=== PATIENT | female | born 1970 | race Caucasian/White ===

== ENCOUNTER → 2024-09-17 | Outpatient (CLI) | payer MEDICAID, SELFPAY ==
[2024-09-17 11:40] LABS: Erythrocyte Sedimentation Rate 32 mm/hr (0-30)
[2024-09-17 11:43] LABS: Absolute Lymphocyte Count 3.64 X10^3/uL (0.83-4.51); Absolute Neutrophil Count 6.8 X10^3/uL (2.0-7.7); Basophil# 0.08 X10^3/uL; Basophil% 0.7 % (0-1); Eosinophils% 2.6 % (0-5); Hemoglobin 14.2 g/dL (12.0-15.0); Lymphocyte # 3.64 X10^3/ul (0.83-4.51); Mean Corp Hgb Conc 32.3 g/dL (32-36); Mean Corpuscular Hgb 27.2 pg (27.0-32.0); Mean Corpuscular Volume 84.3 fL (81-99); Mean Platelet Vol. 9.9 fl (6.2-12.0); Monocyte# 0.45 X10^3/uL; NRBC Flagged by Analyzer 0 % (0-5); Neutrophil # 6.83 X10^3/uL (2.7-7.7); Neutrophil % 60.2 % (47-70); Platelet Count 366 K/mm3 (150-450); RBC Distribution Width CV 14.2 % (11.6-14.6); RBC Distribution Width SD 43.5 fl (35.1-43.9); Red Blood Count 5.22 M/mm3 (4.2-5.4); White Blood Count 11.4 K/mm3 (4.4-11.0)
[2024-09-17 12:29] LABS: Hemoglobin A1c 6.6 % (<=5.6)
[2024-09-17 12:32] LABS: ALB/GLOB Ratio 1.2 RATIO (0.9-2.4); AST(SGOT) 19 U/L (<=31); Alanine Aminotransfer ALT/SGPT 14 U/L (<=34); Albumin, Serum 4.2 g/dL (3.5-5.0); Alkaline Phosphatase 124 U/L (35-104); Anion Gap 11 (5-15); BUN 11 mg/dL (4-19); BUN/Creat Ratio 15.4 RATIO (10-20); CRP < 3.00 mg/L (0.0-3.0); Carbon Dioxide 26.4 mmol/L (21.0-32.0); Chloride 101 mmol/L (98-108); Creatinine, Serum 0.73 mg/dL (0.70-1.20); EST Glomerular Filtration Rate 99 (>60); Globulin 3.6 g/dL (2.2-4.2); Glucose 134 mg/dL (70-99); Potassium 4.4 mmol/L (3.3-5.1); Protein, Total 7.8 g/dL (5.9-8.4); Sodium Level 138 mmol/L (133-145); Total Bilirubin 0.22 mg/dL (0.00-1.30)
[2024-09-17 12:34] LABS: Ammonia 12.2 umol/L (11-51)
[2024-09-18 17:08] LABS: Anti-Centromere B Ab <0.2 AI (0.0-0.9); Anti-Chromatin <0.2 AI (0.0-0.9); Anti-Jo <0.2 AI (0.0-0.9); Anti-Mitochondrial AB <20.0 Units (0.0-20.0); Anti-Scleroderma-70 AB <0.2 AI (0.0-0.9); Anti-dsDNA Ab 3 IU/mL (0-9); RNP Ab 0.4 AI (0.0-0.9); SJOGREN'S Anti-SS-A test < 0.2 AI (0.0-0.9); SJOGREN'S Anti-SS-B test < 0.2 AI (0.0-0.9); Smith Ab <0.2 AI (0.0-0.9)
[2024-09-21 22:06] LABS: AFP, Tumor Marker < 1.8 ng/mL (0.0-9.2); Angiotensin Convert Enzyme 35 U/L (14-82); Anti-Smooth Muscle ABS 7 Units (0-19); Ceruloplasmin 32.7 mg/dL (19.0-39.0); Copper, Serum or Plasma 127 ug/dL (80-158); Cytoplasmic Ab (C-ANCA) <1:20 titer (Neg:<1:20); HEPATITIS B SURFACE AG Negative (Negative); Hep C Antibodies Non Reactive (Non Reactive); Hepatitis A IgM Antibody Negative (Negative); Hepatitis B Core AB IgM Negative (Negative); Perinuclear Ab (P-ANCA) <1:20 titer (Neg:<1:20)
== END | disposition home or self-care (01) ==
LOC: LAB 10:44
PROVIDERS: PCP Nurse Practitioner Family; Referring Provider Student in an Organized Health Care Education/Training Program; Visit Provider Student in an Organized Health Care Education/Training Program
DX: K76.6 Portal hypertension (principal); K31.89 Other diseases of stomach and duodenum; R11.2 Nausea with vomiting, unspecified
CPT/HCPCS: 36415; 80053; 80074; 82105; 82140; 82164; 82390; 82525; 83036; 83516; 85025; 85610; 85652; 86037; 86140; 86225; 86235

== ENCOUNTER 2024-11-19 09:08 | Day surgery (SDC) | payer MEDICAID, SELFPAY ==
--- NOTE | 2024-11-17 15:47 | PAT.ANESEVAL ---
Pre-Assessment Diagnosis/Proposed Procedure Planned Operative Procedure(s): EGD Anesthesia History Anesthesia History - hospice social worker: Anesthesia History - hospice social worker Hx Hospitalization Yes: FOR DIABETES 02/202411/17/24 09:36 Any Problems With Anesthesia No 11/17/24 09:36 Cholinesterase deficiency No 11/17/24 09:36 You/Your Family Experience No 11/17/24 09:36 fever (hyperthermia) with Relationship Recent Exposure to Contagious Disease Does patient have nerve No 11/17/24 09:36 stimulator Patient instructed to have device shut off --Does patient have Pacemaker or ICD? When Was Last Pacemaker Check QUESTION #4 FULL TEXT: You/Your Family Experience fever (hyperthermia) with Anesthesia Last Oral Intake Last Oral intake: Last Oral Intake NPO since Meds taken in AM with sips of water? Meds patient instructed to take am of surgery PONV PONV - hospice social worker: PONV - hospice social worker Female Yes 11/17/24 09:36 HX of Motion Sickness Yes 11/17/24 09:36 HX of N/V After Surgery No 11/17/24 09:36 Non-Smoker No 11/17/24 09:36 Duration of Surgery greater No 11/17/24 09:36 than 60 minutes Number of Risk Factors 2 11/17/24 09:36 PONV Score Moderate Risk 11/17/24 09:36 Height & Weight Height & Weight: Anesthesia: Height & Weight Height 5 ft 11/17/24 11:20 Respiratory Assessment Respiratory Assessment - hospice social worker: Respiratory Tract Infection Hx - hospice social worker Hx Respiratory Tract Infection No 11/17/24 09:36 STOP Sleep Apnea STOP Sleep Apnea - hospice social worker: STOP Sleep Apnea - hospice social worker Hx Hypertension No 11/17/24 09:36 Hx Sleep Apnea No 11/17/24 09:36 CPAP BIPAP Do you snore loudly (louder No 11/17/24 09:36 than talking or can be heard Do you often feel tired/ No 11/17/24 09:36 fatigued/ sleepy during daytime? Has anyone observed you stop No 11/17/24 09:36 breathing during sleep? STOP Results Negative 11/17/24 09:36 QUESTION #5 FULL TEXT : Do you snore loudly (louder than talking or can be heard through closed doors)? 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 Specify any problems Hx of Preganancy in last 3 No 11/17/24 09:36 Months Nurse Filling Out Transfusion VLEHMAN 11/17/24 09:36 & Questions: Date: 11/17/24 11/17/24 09:36 Time: 14:19 11/17/24 09:36 Patient unable to answer at this time (ie. confused, unrespo /Reproduction History /Reproductive History - hospice social worker: /Reproductive Hx- hospice social worker Hx Now No 11/17/24 09:36 Gestational Age (in weeks): EDC: Hx Hx Para Hx Section SAB No 11/17/24 09:36 [facility] Medical History Wears glasses Cancer History of Clostridium difficile infection Insulin dependent diabetes mellitus Anemia History of diverticulitis Gastric reflux Smoker Shortness of breath on exertion Leg cramps GERD (gastroesophageal reflux disease) Diabetes Hyperlipidemia CAD (coronary artery disease) COPD (chronic obstructive pulmonary disease) Abnormal colonoscopy Perianal mass Primary cancer of perianal skin Home Medications ?Medication ?Instructions ?Recorded ?Last Taken ?Type albuterol sulfate 90 mcg/actuation 2 puff inhalation Q6H PRN 09/17/24 Unknown History aerosol inhaler shortness of breath or wheezing benzonatate 200 mg capsule 200 mg PO BID PRN cough 09/17/24 Unknown History omeprazole 40 mg capsule,delayed 40 mg PO QDAY 09/17/24 Unknown History release hydroxyzine HCl 25 mg tablet 25 mg PO TID PRN itching 09/19/24 Unknown History insulin glargine 100 unit/mL (3 20 unit subcut QAM 09/19/24 Unknown History mL) subcutaneous pen (Lantus Solostar U-100 Insulin) montelukast 10 mg tablet 10 mg PO QDAY 09/19/24 Unknown History atorvastatin 40 mg tablet 20 mg PO QDAY 09/30/24 Unknown History cyclobenzaprine 10 mg tablet 10 mg PO TID PRN muscle spasm 09/30/24 Unknown History famotidine 20 mg tablet 20 mg PO BID 09/30/24 Unknown History guaifenesin 600 mg tablet, 600 mg PO BID 09/30/24 Unknown History extended release 12 hr ipratropium 0.5 mg-albuterol 3 mg 3 ml inhalation .qid PRN shortness 09/30/24 Unknown History (2.5 mg base)/3 mL nebulization of breath soln lidocaine 5 % topical ointment 1 applic topical QDAY PRN pain 09/30/24 Unknown History ondansetron HCl 4 mg tablet 4 mg PO Q8H PRN nausea and vomiting 09/30/24 Unknown History sucralfate 1 gram tablet 1 g PO .qid 09/30/24 Unknown History trazodone 50 mg tablet 50 mg PO QHS 09/30/24 Unknown History Allergy/AdvReac Type Severity Reaction Status Date / Time empagliflozin (From Allergy Unknown unknown Verified 11/17/24 11:21 Jardiance) morphine Allergy Unknown unknown Verified 11/17/24 11:21 Surgical History H/O colonoscopy Hx of esophagogastroduodenoscopy Hx of hysterectomy Hx of cholecystectomy Hx of appendectomy Social History Smoking Status: Current every day smoker tobacco type: cigarettes alcohol intake: never substance use type: does not use Audit: Pertinent Findings Pertinent Findings EKG Perinent findings: EKG done on 02/23/2024 demonstrates sinus tachycardia with a ventricular rate of 117 otherwise no significant change with comparison to previous EKG done on December 31, 2023. Additional pertinent findings: Bilateral carotid duplex ultrasound done on 07/09/2024 with no evidence of significant stenosis of the left or right internal carotid artery Recommendation Anesthesia Recommendation Anesthesia recommendation: F/U recommended (There is no echocardiogram in the scanned PAT documents.) Follow up Details Cardiac/Pulmonary Imaging Recommendation: Yes Cadiac/Pulmonary Imaging Rec Details: There is no echocardiogram in the scanned PAT documents that I can see
--- NOTE | 2024-11-17 16:26 | PAT.ANE_ITS ---
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 When Was Last Pacemaker Check QUESTION #4 FULL TEXT: You/Your Family Experience fever (hyperthermia) with Anesthesia Last Oral Intake Last Oral intake: Last Oral Intake NPO since Meds taken in AM with sips of water? 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 - plant technician Female Yes 11/17/24 09:36 HX of Motion Sickness Yes 11/17/24 09:36 HX of N/V After Surgery No 11/17/24 09:36 Non-Smoker No 11/17/24 09:36 Duration of Surgery greater No 11/17/24 09:36 than 60 minutes Number of Risk Factors 2 11/17/24 09:36 PONV Score Moderate Risk 11/17/24 09:36 Height & Weight Height & Weight: Anesthesia: Height & Weight Height 5 ft 11/17/24 11:20 Respiratory Assessment Respiratory Assessment - plant technician: Respiratory Tract Infection Hx - plant technician Hx Respiratory Tract Infection No 11/17/24 09:36 STOP Sleep Apnea STOP Sleep Apnea - plant technician: STOP Sleep Apnea - plant technician Hx Hypertension No 11/17/24 09:36 Hx Sleep Apnea No 11/17/24 09:36 CPAP BIPAP Do you snore loudly (louder No 11/17/24 09:36 than talking or can be heard Do you often feel tired/ No 11/17/24 09:36 fatigued/ sleepy during daytime? Has anyone observed you stop No 11/17/24 09:36 breathing during sleep? STOP Results Negative 11/17/24 09:36 QUESTION #5 FULL TEXT : Do you snore loudly (louder than talking or can be heard through closed doors)? 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 Specify any problems Hx of Preganancy in last 3 No 11/17/24 09:36 Months Nurse Filling Out Transfusion VLEHMAN 11/17/24 09:36 & Questions: Date: 11/17/24 11/17/24 09:36 Time: 14:19 11/17/24 09:36 Patient unable to answer at this time (ie. confused, unrespo /Reproduction History /Reproductive History - plant technician: /Reproductive Hx- plant technician Hx Now No 11/17/24 09:36 Gestational Age (in weeks): EDC: Hx Hx Para Hx Section SAB No 11/17/24 09:36 [facility] Medical History Wears glasses Cancer History of Clostridium difficile infection Insulin dependent diabetes mellitus Anemia History of diverticulitis Gastric reflux Smoker Shortness of breath on exertion Leg cramps GERD (gastroesophageal reflux disease) Diabetes Hyperlipidemia CAD (coronary artery disease) COPD (chronic obstructive pulmonary disease) Abnormal colonoscopy Perianal mass Primary cancer of perianal skin Home Medications ?Medication ?Instructions ?Recorded ?Last Taken ?Type albuterol sulfate 90 mcg/actuation 2 puff inhalation Q 6H PRN 09/17/24 Unknown History aerosol inhaler shortness of breath or wheez ing benzonatate 200 mg capsule 200 mg PO BID PRN cough Unknown History omeprazole 40 mg capsule,delayed 40 mg PO QDAY 5 Unknown History release hydroxyzine HCl 25 mg tablet 25 mg PO TID PRN itching 09/19/24 Unknown History insulin glargine 100 unit/mL (3 20 unit subcut QAM Unknown History mL) subcutaneous pen (Lantus Solostar U-100 Insulin) montelukast 10 mg tablet 10 mg PO QDAY 09/19/24 Unkno wn History atorvastatin 40 mg tablet 20 mg PO QDAY 09/30/24 Unkno wn History cyclobenzaprine 10 mg tablet 10 mg PO TID PRN muscle s pasm 09/30/24 Unknown His tory famotidine 20 mg tablet 20 mg PO BID 09/30/24 Unknow n History guaifenesin 600 mg tablet, 600 mg PO BID 09/30/24 Unkn own History extended release 12 hr ipratropium 0.5 mg-albuterol 3 mg 3 ml inhalation .qid PRN shortness 09/30/24 Unknown History (2.5 mg base)/3 mL nebulization of breath soln lidocaine 5 % topical ointment 1 applic topical QDAY P RN pain 09/30/24 Unknown History ondansetron HCl 4 mg tablet 4 mg PO Q8H PRN nausea and vomiting 09/30/24 Unknown History sucralfate 1 gram tablet 1 g PO .qid 09/30/24 Unknown History trazodone 50 mg tablet 50 mg PO QHS 09/30/24 Unknow n History Allergy/AdvReac Type Severity Reaction Status Date / Time empagliflozin (From Allergy Unknown unknown Verified 11/17/24 11:21 Jardiance) morphine Allergy Unknown unknown Verified 11/17/24 11:21 Surgical History H/O colonoscopy Hx of esophagogastroduodenoscopy Hx of hysterectomy Hx of cholecystectomy Hx of appendectomy Social History Smoking Status: Current every day smoker tobacco type: cigarettes alcohol intake: never substance use type: does not use Audit: Pertinent Findings HISTORY of Pertinent Findings History of Pertinent Findings: EKG Pertinent Findings EKG Perinent findings EKG done on 02/23/2024 11/17/24 15:50 demonstrates sinus tachycardia with a ventricular rate of 117 otherwise no significant change with comparison to previous EKG done on December 31, 2023. Additional Pertinent Findings Additional pertinent findings Bilateral carotid duplex 11/17/24 15:50 ultrasound done on 07/09/2024 with no evidence of significant stenosis of the left or right internal carotid artery Recommendation Anesthesia Recommendation Anesthesia recommendation: OPTIMIZED for anesthesia
[2024-11-19] VITALS (9 sets, daily range): BP systolic 86–134; BP diastolic 52–68; PULSE 82–95; RESP 16–32; TEMP 36.1–37; O2SAT 96–99; BMI 24.5
[2024-11-19] MEDS: Lactated Ringers 1,000 ML 15 ML IV (09:31)
--- NOTE | 2024-11-19 09:49 | PCM.PRE.AN2 ---
ASA Classification* ASA Classification ASA Classification: 3 Assessment & Plan Anesthesia* Anesthesia Assessment Anesthesia Assessment: Discussed sedation and/or anesthesia options, risks, benefits, and alternatives with patient/parents/legal guardian/POA. Questions invited. The patient/parents/legal guardian/POA seems to understand and agrees to proceed with anesthesia plan. Reviewed the physical assessment, medical history, allergy history and patient home medications list prior to surgery/procedure/anesthetic and documented any changes. Performed airway and anesthesia risk assessments. Anesthesia Type Anesthesia Type: MAC History Source History Obtained from:: Patient and Chart Anesthesia Focused Assessment* Temperature: 98.6 F Pulse Rate: 95 Blood Pressure: 134/68 Respiratory Rate: 18 Pulse Ox: 98 Oxygen Delivery Method: Room Air Airway Assessment Mouth opens: >3 cm Mallampati Score: I Teeth Condition: Dentures, Full, Lower and Upper Labs Anesthesia Preop lab: CBC WBC 11.4 K/mm3 (4.4-11.0) H 09/17/24 10:57 09/17/24 RBC 5.22 M/mm3 (4.2-5.4) 09/17/24 10:57 09/17/24 Hgb 14.2 g/dL (12.0-15.0) 09/17/24 10:57 09/17/24 Hct 44.0 % (37-47) 09/17/24 10:57 09/17/24 Plt Count 366 K/mm3 (150-450) 09/17/24 10:57 09/17/24 CHEMISTRY Potassium 4.4 mmol/L (3.3-5.1) 09/17/24 10:33 09/17/24 Sodium 138 mmol/L (133-145) 09/17/24 10:33 09/17/24 BUN 11 mg/dL (4-19) 09/17/24 10:33 09/17/24 Creatinine 0.73 mg/dL (0.70-1.20) 09/17/24 10:33 09/17/24 Glucose 134 mg/dL (70-99) H 09/17/24 10:33 09/17/24 COAG PT 13.0 SECONDS (11.7-14.9) 09/17/24 10:42 09/17/24 Pre-Assessment Diagnosis/Proposed Procedure Planned Operative Procedure(s): EGD Anesthesia History 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 When Was Last Pacemaker Check QUESTION #4 FULL TEXT: You/Your Family Experience fever (hyperthermia) with Anesthesia Last Oral Intake Last Oral intake: Last Oral Intake NPO since 18:30 11/19/24 09:29 Meds taken in AM with sips of No 11/19/24 09:29 water? Meds patient instructed to take am of surgery PONV PONV - administrative fellow: PONV - administrative fellow Female Yes 11/17/24 09:36 HX of Motion Sickness Yes 11/17/24 09:36 HX of N/V After Surgery No 11/17/24 09:36 Non-Smoker No 11/17/24 09:36 Duration of Surgery greater No 11/17/24 09:36 than 60 minutes Number of Risk Factors 2 11/17/24 09:36 PONV Score Moderate Risk 11/17/24 09:36 Height & Weight Height & Weight: Anesthesia: Height & Weight Height 5 ft 1 in 11/19/24 09:29 Weight: 59 kg 11/19/24 09:29 Body Mass Index (BMI) 24.5 11/19/24 09:29 Respiratory Assessment Respiratory Assessment - administrative fellow: Respiratory Tract Infection Hx - administrative fellow Hx Respiratory Tract Infection No 11/17/24 09:36 STOP Sleep Apnea STOP Sleep Apnea - administrative fellow: STOP Sleep Apnea - administrative fellow Hx Hypertension No 11/17/24 09:36 Hx Sleep Apnea No 11/17/24 09:36 CPAP BIPAP Do you snore loudly (louder No 11/17/24 09:36 than talking or can be heard Do you often feel tired/ No 11/17/24 09:36 fatigued/ sleepy during daytime? Has anyone observed you stop No 11/17/24 09:36 breathing during sleep? STOP Results Negative 11/17/24 09:36 QUESTION #5 FULL TEXT : Do you snore loudly (louder than talking or can be heard through closed doors)? 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 Specify any problems Hx of Preganancy in last 3 No 11/17/24 09:36 Months Nurse Filling Out Transfusion VLEHHIGHLAND 11/17/24 09:36 & Questions: Date: 11/17/24 11/17/24 09:36 Time: 14:19 11/17/24 09:36 Patient unable to answer at this time (ie. confused, unrespo /Reproduction History /Reproductive History - administrative fellow: /Reproductive Hx- administrative fellow Hx Now No 11/17/24 09:36 Gestational Age (in weeks): EDC: Hx Hx Para Hx Section SAB No 11/17/24 09:36 Active Medications Active Medications: Current Medications Generic Name Dose Route Start Last Admin Trade Name Freq PRN Reason Stop Dose Admin Lactated Ringer's 1,000 mls @ 15 mls/hr 11/19/24 09:15 11/19/24 09:31 IV 15 mls/hr .Q48H DENISE Administration PFSH Medical History Wears glasses Cancer History of Clostridium difficile infection Insulin dependent diabetes mellitus Anemia History of diverticulitis Gastric reflux Smoker Shortness of breath on exertion Leg cramps GERD (gastroesophageal reflux disease) Diabetes Hyperlipidemia CAD (coronary artery disease) COPD (chronic obstructive pulmonary disease) Abnormal colonoscopy Perianal mass Primary cancer of perianal skin Home Medications ?Medication ?Instructions ?Recorded ?Last Taken ?Type albuterol sulfate 90 mcg/actuation 2 puff inhalation Q6H PRN 09/17/24 Unknown History aerosol inhaler shortness of breath or wheezing benzonatate 200 mg capsule 200 mg PO BID PRN cough 09/17/24 Unknown History omeprazole 40 mg capsule,delayed 40 mg PO QDAY 09/17/24 Unknown History release hydroxyzine HCl 25 mg tablet 25 mg PO TID PRN itching 09/19/24 Unknown History insulin glargine 100 unit/mL (3 20 unit subcut QAM 09/19/24 Unknown History mL) subcutaneous pen (Lantus Solostar U-100 Insulin) montelukast 10 mg tablet 10 mg PO QDAY 09/19/24 Unknown History atorvastatin 40 mg tablet 20 mg PO QDAY 09/30/24 Unknown History cyclobenzaprine 10 mg tablet 10 mg PO TID PRN muscle spasm 09/30/24 Unknown History famotidine 20 mg tablet 20 mg PO BID 09/30/24 Unknown History guaifenesin 600 mg tablet, 600 mg PO BID 09/30/24 Unknown History extended release 12 hr ipratropium 0.5 mg-albuterol 3 mg 3 ml inhalation .qid PRN shortness 09/30/24 Unknown History (2.5 mg base)/3 mL nebulization of breath soln lidocaine 5 % topical ointment 1 applic topical QDAY PRN pain 09/30/24 Unknown History ondansetron HCl 4 mg tablet 4 mg PO Q8H PRN nausea and vomiting 09/30/24 Unknown History sucralfate 1 gram tablet 1 g PO .qid 09/30/24 Unknown History trazodone 50 mg tablet 50 mg PO QHS 09/30/24 Unknown History Allergy/AdvReac Type Severity Reaction Status Date / Time empagliflozin (From Allergy Unknown unknown Verified 11/19/24 09:28 Jardiance) morphine Allergy Unknown unknown Verified 11/19/24 09:28 Surgical History H/O colonoscopy Hx of esophagogastroduodenoscopy Hx of hysterectomy Hx of cholecystectomy Hx of appendectomy Social History Smoking Status: Current every day smoker tobacco type: cigarettes alcohol intake: never substance use type: does not use Review of Systems (Anesthesia) ROS Narrative System reviewed and no additional complaints, except as documented. Physical Exam Const alert and oriented x3 HEENT Teeth and Gingiva: dentures and edentulous Resp normal respiratory effort Cardio regular rate Neuro oriented x3 and moves all extremities
--- NOTE | 2024-11-19 10:30 | EGD_PTH ---
PATIENT: ELENA REID LOC: EN U#:[id number] AGE/SX: 54/F ROOM: RE11/19/[address]: Dr. Richy Bradshaw DO : 1970 BED: DIS: 11/19/2024 SPEC #: [id number] RECD: 11/19/24 11:44 STATUS: DONAVAN REQ #: [id number] JASE: 11/19/24 10:[address]: Richy Bradshaw DEPT: SURGICAL PATHOLOGY RECD BY: Mickey Ellis ENTERED: 11/19/24 13:28 SP TYPE: EGD BIOPSY OT DR: Diana Solorzano, TREE THINNER-C Tissues: A - Gastric mucous membrane B - Duodenum, NOS C - Gastric mucous membrane D - Esophagus, NOS E - Esophagus, NOS Procedures: Immunohistochemical Stains Surgery Specimen Level IV HEADER OPERATION: EGD with biopsies PRE-OP DIAGNOSIS: Abdominal pain, nausea and portal gastropathy TISSUE SUBMITTED: A- Gastric ulcer biopsy, B- Duodenal biopsy, C- Gastric body biopsy, D- Distal esophagus biopsy, E- Random esophagus biopsy MICROSCOPIC DIAGNOSIS A. Stomach ulcer, biopsy: - Active chronic inflammation with reactive/reparative changes. - IHC for H pylori PENDING, to be reported in an addendum. B. Duodenum, biopsy: - Normal villous morphology, negative for increased intraepithelial lymphocytes. - Bill gland hyperplasia and gastric mucin cell metaplasia, suggestive of peptic injury. C. Gastric body, biopsy: - Oxyntic mucosa with features of reactive gastropathy. - Negative for Helicobacter-like organisms (H&E). D. Distal esophagus, biopsy: - Squamous and columnar mucosa with mild reactive changes. - Negative for goblet cell metaplasia. - Negative for dysplasia. E. Esophagus, random biopsy: - Squamous mucosa negative for eosinophils. MICROSCOPIC DESCRIPTION Slides are reviewed. GROSS DESCRIPTION A. Received in fixative is one container labeled with the patient's name and designated Gastric ulcer biopsy. The specimen consists of multiple irregular fragments of light elliott soft tissue that in aggregate measure <0.1 to 0.4 cm. The specimen is totally submitted in one cassette. B. Received in fixative is one container labeled with the patient's name and designated Duodenal biopsy. The specimen consists of three irregular fragments of light elliott soft tissue that in aggregate measure 0.1 to 0.5 cm. The specimen is totally submitted in one cassette. C. Received in fixative is one container labeled with the patient's name and designated Gastric body biopsy. The specimen consists of two irregular fragments of light elliott soft tissue that in aggregate measure <0.1 to 0.4 cm. The specimen is totally submitted in one cassette. D. Received in fixative is one container labeled with the patient's name and designated Distal esophagus biopsy. The specimen consists of three irregular fragments of light elliott soft tissue that in aggregate measure <0.1 to 0.4 cm. The specimen is totally submitted in one cassette. E. Received in fixative is one container labeled with the patient's name and designated Random esophagus biopsy. The specimen consists of one irregular fragment of light elliott soft tissue that measures 0.4 cm. The specimen is totally submitted in one cassette. CRISTY/ 11/19/2024 CPT:23998g7,48130 ADDENDUM ADDENDUM ADDENDUM ADDENDUM ADDENDUM ADDENDUM ADDENDUM ADDENDUM ADDENDUM ADDENDUM 11/21/2024 18:24 ADDENDUM 11/21/2024 18:24 ADDENDUM 11/21/2024 18:24 ADDENDUM 11/21/2024 18:24 ADDENDUM 11/21/2024 18:24 This addendum is to report the H pylori IHC performed on part A: A. IHC is negative for H pylori organisms. All matched controls reacted appropriately. These tests were developed and their performance characteristics determined by [facility]. They may not have been cleared or approved by the [place]. Food and Drug Administration. The FDA has determined that such clearance or approval is not necessary.? The above immunohistochemical/dualISH?markers are reviewed by the Pathologist.
--- NOTE | 2024-11-19 11:16 | PCM.HP.STD ---
HPI - General General Date of Admission: 11/19/24 Date of Service: 11/19/24 Chief Complaint: Abdominal pain, nausea and portal gastropathy HPI Narrative ELENA REID, is a 54 F who presents for endoscopic evaluation of abdominal pain, nausea. Pt was hospitalized in the ICU in Feb 2024 for suspected COVID infection and diabetic ketoacidosis with glucose in the 1000s. Since then she has had issues with n/v, diarrhea and unintentional weightless. She recently underwent EGD and colonoscopy at which showed portal hypertensive gastropathy and an anal mass. Pathology is not back yet. Pt has daily n/v. She is nauseous after each meal but does not vomit daily. She ate steak a few days ago which did not sit right with her. She endorses 100 lbs of weight loss since Feb 2024. She is also having loose stools which was evaluated with the colonoscopy. She endorses drinking more alcohol then she should have been drinking for about two years. 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 [facility] Medical History Wears glasses Cancer History of Clostridium difficile infection Insulin dependent diabetes mellitus Anemia History of diverticulitis Gastric reflux Smoker Shortness of breath on exertion Leg cramps GERD (gastroesophageal reflux disease) Diabetes Hyperlipidemia CAD (coronary artery disease) COPD (chronic obstructive pulmonary disease) Abnormal colonoscopy Perianal mass Primary cancer of perianal skin Home Medications ?Medication ?Instructions ?Recorded ?Last Taken ?Type albuterol sulfate 90 mcg/actuation 2 puff inhalation Q6H PRN 09/17/24 Unknown History aerosol inhaler shortness of breath or wheezing benzonatate 200 mg capsule 200 mg PO BID PRN cough 09/17/24 Unknown History omeprazole 40 mg capsule,delayed 40 mg PO QDAY 09/17/24 Unknown History release hydroxyzine HCl 25 mg tablet 25 mg PO TID PRN itching 09/19/24 Unknown History insulin glargine 100 unit/mL (3 20 unit subcut QAM 09/19/24 Unknown History mL) subcutaneous pen (Lantus Solostar U-100 Insulin) montelukast 10 mg tablet 10 mg PO QDAY 09/19/24 Unknown History atorvastatin 40 mg tablet 20 mg PO QDAY 09/30/24 Unknown History cyclobenzaprine 10 mg tablet 10 mg PO TID PRN muscle spasm 09/30/24 Unknown History famotidine 20 mg tablet 20 mg PO BID 09/30/24 Unknown History guaifenesin 600 mg tablet, 600 mg PO BID 09/30/24 Unknown History extended release 12 hr ipratropium 0.5 mg-albuterol 3 mg 3 ml inhalation .qid PRN shortness 09/30/24 Unknown History (2.5 mg base)/3 mL nebulization of breath soln lidocaine 5 % topical ointment 1 applic topical QDAY PRN pain 09/30/24 Unknown History ondansetron HCl 4 mg tablet 4 mg PO Q8H PRN nausea and vomiting 09/30/24 Unknown History sucralfate 1 gram tablet 1 g PO .qid 09/30/24 Unknown History trazodone 50 mg tablet 50 mg PO QHS 09/30/24 Unknown History Allergy/AdvReac Type Severity Reaction Status Date / Time empagliflozin (From Allergy Unknown unknown Verified 11/19/24 09:28 Jardiance) morphine Allergy Unknown unknown Verified 11/19/24 09:28 Surgical History H/O colonoscopy Hx of esophagogastroduodenoscopy Hx of hysterectomy Hx of cholecystectomy Hx of appendectomy Social History Smoking Status: Current every day smoker tobacco type: cigarettes alcohol intake: never substance use type: does not use ROS Constitutional Constitutional: Reports systems reviewed and no addt'l complaints, except as documented Eyes Eyes: Reports systems reviewed and no addt'l complaints, except as documented ENT HEENT: Reports systems reviewed and no addt'l complaints, except as documented Cardiovascular Cardiovascular: Reports systems reviewed and no addt'l complaints, except as documented Respiratory/Chest Respiratory/Chest: Reports systems reviewed and no addt'l complaints, except as documented Gastrointestinal Gastrointestinal: Reports systems reviewed and no addt'l complaints, except as documented Genitourinary Genitourinary: Reports systems reviewed and no addt'l complaints, except as documented Musculoskeletal Musculoskeletal: Reports systems reviewed and no addt'l complaints, except as documented Integumentary Integumentary: Reports systems reviewed and no addt'l complaints, except as documented Neurologic Neurologic: Reports systems reviewed and no addt'l complaints, except as documented Psychiatric Psychiatric: Reports systems reviewed and no addt'l complaints, except as documented Endocrine Endocrinology: Reports systems reviewed and no addt'l complaints, except as documented Hematologic/Lymphatic Hematologic/Lymphatic: Reports systems reviewed and no addt'l complaints, except as documented Allergic/Immunologic Allergic/Immunologic: Reports systems reviewed and no addt'l complaints, except as documented Vital Signs Vital Signs Vital Signs: 11/19/24 09:29 11/19/24 09:29 11/19/24 09:54 Temperature 98.6 F 98.6 F Temperature Source Temporal Pulse Rate 95 95 Respiratory Rate 18 18 Respiratory Pattern Normal Blood Pressure 134/68 H 134/68 H Blood Pressure Mean 90 Blood Pressure Source Monitor Blood Pressure Position Sitting Blood Pressure Location Right Arm Pulse Ox 98 98 Oxygen Delivery Method Room Air Room Air Weight Weight: 130 lb 1.164 oz Body Mass Index (BMI) 24.5 Physical Exam Const alert, oriented x3, no apparent distress and healthy appearing General Appearance: cooperative GI normal to inspection, nondistended, normoactive bowel sounds, soft to palpation, non-tender and non-distended Percussion: normal to percussion Rectal Exam: deferred Assessment & Plan Assessment/Plan (1) Portal hypertensive gastropathy: (2) Nausea & vomiting: (3) Rapid weight loss: PLAN: ROS Const Constitutional: Positive for fatigue and weight change; No fever(s) ENT ENT: No difficulty swallowing Cardio Cardiology: Positive for leg pain with exertion Gastro GI: Positive for abdominal pain, bloating, change in bowel habits, diarrhea, heartburn, excessive flatus, nausea/dyspepsia and vomiting; No belching, change in stool character, coffee ground emesis, constipation, cramping, difficulty swallowing, feeling full early, incontinent of stools, Vomiting blood/hematemesis, Blood in stool, loose stools, Black,tarry stools, pain with swallowing or other Musc Musculoskeletal: Positive for joint pain, back pain, muscle cramps, muscle weakness, stiffness, Arthritis, restless legs, leg pain at night and leg pain with exertion Skin Skin: No yellowing of the eye or itchy eyes Neuro Neurology: Positive for restless legs Psych Psychiatric: Positive for anxiety and Positive for depression Endo Endocrine: Positive for fatigue and weight change Aller/Imm Allergy/Immunologic: No itchy eyes Dev/Lymp Hematologic/Lymphatic: No easy bleeding or easy bruising Exam Const General: cooperative and comfortable Assessment and Plan Assessment and Plan (1) Nausea & vomiting: Status: Acute (2) Portal hypertensive gastropathy: Status: Acute (3) Diarrhea: Status: Acute Plan: This is a 54 yo female pt referred to [facility] from her PCP regarding findings of portal hypertensive gastropathy. Pt endorses a hx of alcohol use for 2 years but is sober now. She is not aware of any liver issues at this time. Her PCP did order a liver US. I have put in blood work for chronic liver disease. She is also having n/v, diarrhea and weight loss since Feb 2024 following ICU admission of DKA and COVID. EGD showing portal hypertensive gastropathy but pathology not back yet. She will have a GES to evaluate her stomach emptying as she has risk factors for gastroparesis and symptoms. She was recommended to have a repeat EGD and was scheduled for this today. She has diarrhea and underwent colonoscopy showing an anal mass which was removed and biopsies for colitis however she does not have these results yet. She will have these faxed to us when she gets them. Pending work up will consider further testing or treatments. -Liver US -Continue PPI and Carafate -Repeat EGD -GES -Chronic liver work up -f/u in one month
--- NOTE | 2024-11-19 11:41 | PCM.POST.ANE ---
Anesthesia: Postop Eval I Current Vital Signs Temperature: 97.5 F Pulse Rate: 86 Blood Pressure: 93/55 Respiratory Rate: 22 Pulse Ox: 97 Oxygen Delivery Method: Room Air Assessment Airway patent: Yes Spontaneous unlabored respirations: Yes Mental status: Asleep nausea: No Vomiting: No Anesthesia Complication: No Fluid Hydration Crystalloid volume administer (ml): 300 Total IV fluid infused: 300 Progress Note Anesthesia document: Postop Eval 1 completed: Yes
--- NOTE | 2024-11-19 11:42 | OP.EGD_ITS ---
Patient Name: Kailey Johnson Procedure Date: 11/19/2024 11:08 AM Date of : 1970 Age: 54 Procedure: Upper GI endoscopy Indications: Functional Dyspepsia, Dyspepsia, Indigestion Providers: Richy Bradshaw DO Medicines: Monitored Anesthesia Care Patient Profile: This is a 54 year old female. Refer to note in patient chart for documentation of history and physical. Patient has symptoms of chronic abdominal cramping, chronic abdominal distention, chronic epigastric abdominal pain, chronic cough, acute dyspepsia and chronic nausea. Complications: No immediate complications. Procedure: Pre-Anesthesia Assessment: - Prior to the procedure, a History and Physical was performed, and patient medications and allergies were reviewed. The patient is competent. The risks and benefits of the procedure and the sedation options and risks were discussed with the patient. All questions were answered and informed consent was obtained. Patient identification and proposed procedure were verified by the physician in the pre-procedure area. Mental Status Examination: alert and oriented. Airway Examination: normal oropharyngeal airway and neck mobility. Respiratory Examination: clear to auscultation. CV Examination: normal. Prophylactic Antibiotics: The patient does not require prophylactic antibiotics. Prior Anticoagulants: The patient has taken no anticoagulant or antiplatelet agents. ASA Grade Assessment: II - A patient with mild systemic disease. After reviewing the risks and benefits, the patient was deemed in satisfactory condition to undergo the procedure. The anesthesia plan was to use monitored anesthesia care (MAC). Immediately prior to administration of medications, the patient was re-assessed for adequacy to receive sedatives. The heart rate, respiratory rate, oxygen saturations, blood pressure, adequacy of pulmonary ventilation, and response to care were monitored throughout the procedure. The physical status of the patient was re-assessed after the procedure. After obtaining informed consent, the endoscope was passed under direct vision. Throughout the procedure, the patient's blood pressure, pulse, and oxygen saturations were monitored continuously. The Endoscope was introduced through the mouth, and advanced to the fourth part of the duodenum. Small bowel enteroscopy was deemed necessary. The upper GI endoscopy was accomplished without difficulty. The patient tolerated the procedure well. Scope In: 11:22:35 AM Scope Out: 11:28:22 AM Total Procedure Duration Time 0 hours 5 minutes 47 seconds Findings: Diffuse, white plaques were found in the entire esophagus. Biopsies were taken with a cold forceps for histology. Verification of patient identification for the specimen was done. Estimated blood loss was minimal. Esophagitis with no bleeding was found 39 to 40 cm from the incisors. Biopsies were taken with a cold forceps for histology. Verification of patient identification for the specimen was done. Estimated blood loss was minimal. Diffuse mild inflammation characterized by erosions was found in the entire examined stomach. Biopsies were taken with a cold forceps for histology. Verification of patient identification for the specimen was done. Estimated blood loss was minimal. Biopsies were taken with a cold forceps for Helicobacter pylori testing. Verification of patient identification for the specimen was done. Estimated blood loss was minimal. Many non-bleeding linear duodenal ulcers with no stigmata of bleeding were found in the duodenal bulb. The largest lesion was 4 mm in largest dimension. Biopsies were taken with a cold forceps for histology. Verification of patient identification for the specimen was done. Estimated blood loss was minimal. Impression: - Esophageal plaques were found, consistent with candidiasis. Biopsied. - Reflux esophagitis with no bleeding. Biopsied. - Gastritis. Biopsied. - Non-bleeding duodenal ulcers with no stigmata of bleeding. Biopsied. Recommendation: - Discharge patient to home. - Resume previous diet. - Continue present medications. - Await pathology results. - Repeat upper endoscopy in 1 year for surveillance. Procedure Code(s): --- Professional --- 68412, Small intestinal endoscopy, enteroscopy beyond second portion of duodenum, not including ileum; with biopsy, single or multiple CPT copyright 2021 [employer]. All rights reserved. The codes documented in this report are preliminary and upon mine surveyor review may be revised to meet current compliance requirements. Richy Bradshaw DO 11/19/2024 11:41:45 AM This report has been signed electronically. Number of Addenda: 0 Note Initiated On: 11/19/2024 11:08 AM
--- NOTE | 2024-11-19 11:42 | OP.CCLET_ITS ---
11/19/2024 Diana Solorzano, Nhung-c Re : Upper GI endoscopy procedure for Kailey Johnson Dear Rashad This procedure was performed on Tuesday, November 19, 2024. My impressions and recommendations are as follows: Impressions : - Esophageal plaques were found, consistent with candidiasis. Biopsied. - Reflux esophagitis with no bleeding. Biopsied. - Gastritis. Biopsied. - Non-bleeding duodenal ulcers with no stigmata of bleeding. Biopsied. Recommendations : - Discharge patient to home. - Resume previous diet. - Continue present medications. - Await pathology results. - Repeat upper endoscopy in 1 year for surveillance. My findings are described in the full procedure note, which is enclosed. If I can be of further assistance, please feel free to contact me at . Sincerely, Richy Bradshaw, 11/19/2024 11:41:45 AM This report has been signed electronically.
--- NOTE | 2024-11-19 16:01 | PCM.POSTANE2 ---
Anesthesia Postop Eval I Sum Postop Eval Completion status Anesthesia document: Postop Eval 1 completed: Yes Anesthesia Postop Eval I Summary Anesthesia Postop Eval I Summary: Anesthesia Postop Eval I: Assessment Summary Airway patent Yes 11/19/24 11:44 [email or web address] Spontaneous unlabored Yes 11/19/24 11:44 [email or web address] respirations Mental status Asleep 11/19/24 11:44 [email or web address] nausea No 11/19/24 11:44 [email or web address] Vomiting No 11/19/24 11:44 [email or web address] Anesthesia Postop Eval I: Fluid Summary Crystalloid volume administer 300 11/19/24 11:44 [email or web address] (ml) Colloids volume administered ( ml) Blood Product volume administered (ml) Total IV fluid infused 300 11/19/24 11:44 [email or web address] Anesthesia Postop Eval I: Summary Notes Anesthesia Complication No 11/19/24 11:44 [email or web address] Anesthesia Complication Comment: Post-operative progress note Anesthesia: Postop Eval II Evaluation Mental status: Awake and Calm Pain Level: 1 nausea: No Vomiting: No Complications Anesthesia Complication: No
== END 2024-11-19 12:27 | disposition home or self-care (01) ==
LOC: EN 09:08 → AC 09:09
PROVIDERS: PCP Nurse Practitioner Family; Referring Provider Nurse Practitioner Family; Visit Provider Internal Medicine Gastroenterology
PROC: 0DJ08ZZ Inspection of Upper Intestinal Tract, Via Natural or Artificial Opening Endoscopic (ICD-10-PCS; CPT 43235; principal; 2024-11-19 10:25)
DX: K26.9 Duodenal ulcer, unspecified as acute or chronic, without hemorrhage or perforation (principal); K76.6 Portal hypertension; J44.9 Chronic obstructive pulmonary disease, unspecified; Z79.4 Long term (current) use of insulin; E11.9 Type 2 diabetes mellitus without complications; K21.00 Gastro-esophageal reflux disease with esophagitis, without bleeding; K29.00 Acute gastritis without bleeding; E78.5 Hyperlipidemia, unspecified; I25.10 Atherosclerotic heart disease of native coronary artery without angina pectoris; F17.210 Nicotine dependence, cigarettes, uncomplicated; Z79.899 Other long term (current) drug therapy
CPT/HCPCS: 44361; 88305; 88342; J2405

== ENCOUNTER 2024-11-28 10:19 | Day surgery (SDC) | payer MEDICAID, SELFPAY ==
[2024-11-28] VITALS (7 sets, daily range): BP systolic 109–138; BP diastolic 63–71; PULSE 94–99; RESP 16–20; TEMP 36.6–36.7; O2SAT 95–99; BMI 24.5
[2024-11-28] MEDS: Lactated Ringers 1,000 ML 15 ML IV (10:55)
--- NOTE | 2024-11-28 11:12 | PRE.ANES_ITS ---
ASA Classification* ASA Classification ASA Classification: 3 Assessment & Plan Anesthesia* Anesthesia Assessment Anesthesia Assessment: Discussed sedation and/or anesthesia options, risks, benefits, and alternatives with patient/parents/legal guardian/POA. Questions invited. The patient/parents/legal guardian/POA seems to understand and agrees to proceed with anesthesia plan. Reviewed the physical assessment, medical history, allergy history and patient home medications list prior to surgery/procedure/anesthetic and documented any changes. Performed airway and anesthesia risk assessments. Anesthesia Type Anesthesia Type: MAC History Source History Obtained from:: Patient and Chart Anesthesia Focused Assessment* Temperature: 97.9 F Pulse Rate: 99 Blood Pressure: 126/63 Respiratory Rate: 18 Pulse Ox: 99 Oxygen Delivery Method: Room Air Airway Assessment Mouth opens: >3 cm Mallampati Score: III Teeth Condition: Missing (Patient is edentulous.) Neck Range of motion (ROM): Full ROM Labs Anesthesia Preop lab: CBC WBC 11.4 K/mm3 (4.4-11.0) H 09/17/24 10:57 5 RBC 5.22 M/mm3 (4.2-5.4) 09/17/24 10:57 09/17/24 Hgb 14.2 g/dL (12.0-15.0) 09/17/24 10:57 09/17/24 Hct 44.0 % (37-47) 09/17/24 10:57 09/17/24 Plt Count 366 K/mm3 (150-450) 09/17/24 10:57 09/17/24 CHEMISTRY Potassium 4.4 mmol/L (3.3-5.1) 09/17/24 10:33 09/17/24 Sodium 138 mmol/L (133-145) 09/17/24 10:33 09/17/24 BUN 11 mg/dL (4-19) 09/17/24 10:33 09/17/24 Creatinine 0.73 mg/dL (0.70-1.20) 09/17/24 10:33 09/17/24 Glucose 134 mg/dL (70-99) H 09/17/24 10:33 09/17/24 COAG PT 13.0 SECONDS (11.7-14.9) 09/17/24 10:42 Pre-Assessment Diagnosis/Proposed Procedure Planned Operative Procedure(s): IJ PORT Anesthesia History Anesthesia History - transportation security screener: Anesthesia History - transportation security screener Hx Hospitalization Yes: FOR DIABETES 02/202411/21/24 13:43 Any Problems With Anesthesia No 11/21/24 13:43 Cholinesterase deficiency No 11/21/24 13:43 You/Your Family Experience No 11/21/24 13:43 fever (hyperthermia) with Relationship Recent Exposure to Contagious No 11/28/24 10:41 Disease Does patient have nerve No 11/21/24 13:43 stimulator Patient instructed to have device shut off --Does patient have Pacemaker No 11/28/24 10:41 or ICD? When Was Last Pacemaker Check QUESTION #4 FULL TEXT: You/Your Family Experience fever (hyperthermia) with Anesthesia Last Oral Intake Last Oral intake: Last Oral Intake NPO since 23:00 11/28/24 10:41 Meds taken in AM with sips of No 11/28/24 10:41 water? Meds patient instructed to take am of surgery PONV PONV - transportation security screener: PONV - transportation security screener Female Yes 11/21/24 13:43 HX of Motion Sickness Yes 11/21/24 13:43 HX of N/V After Surgery No 11/21/24 13:43 Non-Smoker No 11/21/24 13:43 Duration of Surgery greater No 11/21/24 13:43 than 60 minutes Number of Risk Factors 2 11/21/24 13:43 PONV Score Moderate Risk 11/21/24 13:43 Height & Weight Height & Weight: Anesthesia: Height & Weight Height 5 ft 1 in 11/28/24 10:41 Weight: 59 kg 11/28/24 10:41 Body Mass Index (BMI) 24.5 11/28/24 10:41 Respiratory Assessment Respiratory Assessment - transportation security screener: Respiratory Tract Infection Hx - transportation security screener Hx Respiratory Tract Infection No 11/21/24 13:43 STOP Sleep Apnea STOP Sleep Apnea - transportation security screener: STOP Sleep Apnea - transportation security screener Hx Hypertension No 11/21/24 13:43 Hx Sleep Apnea No 11/21/24 13:43 CPAP No 11/21/24 13:43 BIPAP Do you snore loudly (louder No 11/21/24 13:43 than talking or can be heard Do you often feel tired/ Yes 11/21/24 13:43 fatigued/ sleepy during daytime? Has anyone observed you stop No 11/21/24 13:43 breathing during sleep? STOP Results Negative 11/21/24 13:43 QUESTION #5 FULL TEXT : Do you snore loudly (louder than talking or can be heard through closed doors)? 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 Specify any problems Hx of Preganancy in last 3 No 11/21/24 13:43 Months Nurse Filling Out Transfusion DSCHRIBER 11/21/24 13:43 & Questions: Date: 11/21/24 11/21/24 13:43 Time: 13:44 11/21/24 13:43 Patient unable to answer at this time (ie. confused, unrespo /Reproduction History /Reproductive History - transportation security screener: /Reproductive Hx- transportation security screener Hx Now Gestational Age (in weeks): EDC: Hx Hx Para Hx Section SAB No 11/21/24 13:43 Active Medications Active Medications: Current Medications Generic Name Dose Route Start Last Admin Trade Name Freq PRN Reason Stop Dose Admin Cefazolin Sodium 2 gm/ Sodium 110 mls @ 200 mls/hr 11/28/24 12:30 Chloride IV 11/28/24 13:02 INTRAOP ONE Lactated Ringer's 1,000 mls @ 15 mls/hr 11/28/24 10:30 11/28/24 10:55 IV 15 mls/hr .Q48H DENISE Administration PFSH Medical History Encounter for education Insulin dependent diabetes mellitus Wears glasses Cancer History of Clostridium difficile infection Anemia History of diverticulitis Gastric reflux Smoker Shortness of breath on exertion Leg cramps Hyperlipidemia CAD (coronary artery disease) COPD (chronic obstructive pulmonary disease) Abnormal colonoscopy Perianal mass Primary cancer of perianal skin Home Medications Medication Instructions Recorded Last Taken Type albuterol sulfate 90 mcg/actuation 2 puff inhalation Q 6H PRN 09/17/24 11/26/24 History aerosol inhaler shortness of breath or wheez ing benzonatate 200 mg capsule 200 mg PO BID PRN cough Unknown History omeprazole 40 mg capsule,delayed 40 mg PO QDAY 5 11/27/24 History release hydroxyzine HCl 25 mg tablet 25 mg PO TID PRN itching 09/19/24 Unknown History insulin glargine 100 unit/mL (3 20 unit subcut QAM 11/20/24 History mL) subcutaneous pen (Lantus Solostar U-100 Insulin) montelukast 10 mg tablet 10 mg PO QDAY 09/19/2411/27 History atorvastatin 40 mg tablet 20 mg PO QDAY 09/30/2411/27 History cyclobenzaprine 10 mg tablet 10 mg PO TID PRN muscle s pasm 09/30/24 Unknown History famotidine 20 mg tablet 20 mg PO BID 09/30/24 History guaifenesin 600 mg tablet, 600 mg PO BID 09/30/24 Unkn own History extended release 12 hr ipratropium 0.5 mg-albuterol 3 mg 3 ml inhalation .qid PRN shortness 09/30/24 Unknown History (2.5 mg base)/3 mL nebulization of breath soln lidocaine 5 % topical ointment 1 applic topical QDAY P RN pain 09/30/24 Unknown History ondansetron HCl 4 mg tablet 4 mg PO Q8H PRN nausea and vomiting 09/30/24 11/27/24 History sucralfate 1 gram tablet 1 g PO .qid 09/30/24 5 History trazodone 50 mg tablet 50 mg PO QHS 09/30/24 Unknow n History lidocaine-prilocaine 2.5 %-2.5 % 1 applic topical ONCE PRN port 11/26/24 Unknown Rx topical cream access 30 days #30 grams Allergy/AdvReac Type Severity Reaction Status Date / Time empagliflozin (From Allergy Unknown unknown Verified 11/28/24 10:34 Jardiance) morphine Allergy Unknown unknown Verified 11/28/24 10:34 Surgical History H/O colonoscopy Hx of esophagogastroduodenoscopy Hx of hysterectomy Hx of cholecystectomy Hx of appendectomy Social History Smoking Status: Current every day smoker tobacco type: cigarettes alcohol intake: never substance use type: does not use Review of Systems (Anesthesia) ROS Narrative System reviewed and no additional complaints, except as documented.
--- NOTE | 2024-11-28 12:23 | PCM.HP.BLA ---
History and Physical Date of Admission: 11/28/24 Date of Service: 11/20/24 MR#: [id number] Acct: [id number] Name: ELENA REID Rep #: [id number] : 1970 Provider: Dr. Viki Maxwell MD Age/Sex: 54/F Location: [facility] Status: Signed Intake Vital Signs 11/17/2510:20 11/19/2508:29 11/20/2508:56 Height 5 ft 5 ft 1 in 5 ft Weight: 134 lb 2 oz BMI 26.2 BP 117/67 Blood Pressure Location Rt brachial Position Sitting Respiration 17 Pulse 80 Pulse Source Monitor Temp 97.5 F L Temp Source Temporal Pulse Oximetry (%) 95 Oxygen Delivery Method room air Intake Visit Reasons: PORT PLACEMENT Chief Complaint: port Is patient in pain?: No Allergies empagliflozin (From [employer]) Allergy (Unknown, Verified 11/20/24 09:56) unknownmorphine Allergy (Unknown, Verified 11/20/24 09:56) unknown Medications Medication Instructions Recorded Confirmed Type albuterol sulfate 90 mcg/actuation 2 puff inhalation Q6H PRN 09/17/24 11/20/24 History aerosol inhaler shortness of breath or wheezing benzonatate 200 mg capsule 200 mg PO BID PRN cough 09/17/24 11/20/24 History omeprazole 40 mg capsule,delayed 40 mg PO QDAY 09/17/24 11/20/24 History release hydroxyzine HCl 25 mg tablet 25 mg PO TID PRN itching 09/19/24 11/20/24 History insulin glargine 100 unit/mL (3 20 unit subcut QAM 09/19/24 11/20/24 History mL) subcutaneous pen (Lantus Solostar U-100 Insulin) montelukast 10 mg tablet 10 mg PO QDAY 09/19/24 11/20/24 History atorvastatin 40 mg tablet 20 mg PO QDAY 09/30/24 11/20/24 History cyclobenzaprine 10 mg tablet 10 mg PO TID PRN muscle spasm 09/30/24 11/20/24 History famotidine 20 mg tablet 20 mg PO BID 09/30/24 11/20/24 History guaifenesin 600 mg tablet, 600 mg PO BID 09/30/24 11/20/24 History extended release 12 hr ipratropium 0.5 mg-albuterol 3 mg 3 ml inhalation .qid PRN shortness 09/30/24 11/20/24 History (2.5 mg base)/3 mL nebulization of breath soln lidocaine 5 % topical ointment 1 applic topical QDAY PRN pain 09/30/24 11/20/24 History ondansetron HCl 4 mg tablet 4 mg PO Q8H PRN nausea and vomiting 09/30/24 11/20/24 History sucralfate 1 gram tablet 1 g PO .qid 09/30/24 11/20/24 History trazodone 50 mg tablet 50 mg PO QHS 09/30/24 11/20/24 History PFSH Medical History Wears glasses Cancer History of Clostridium difficile infection Insulin dependent diabetes mellitus Anemia History of diverticulitis Gastric reflux Smoker Shortness of breath on exertion Leg cramps GERD (gastroesophageal reflux disease) Diabetes Hyperlipidemia CAD (coronary artery disease) COPD (chronic obstructive pulmonary disease) Abnormal colonoscopy Perianal mass Primary cancer of perianal skin Surgical History H/O colonoscopy Hx of esophagogastroduodenoscopy Hx of hysterectomy Hx of cholecystectomy Hx of appendectomy Social History Smoking Status: Current every day smoker tobacco type: cigarettes alcohol intake: never substance use type: does not use HPI HPI HPI: 54-year-old female presents for port placement due to 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 Patient's chemotherapy teaching is on 11/26. ROS General General: Yes weight change and fatigue; No appetite, colon cancer, breast cancer or weakness HEENT HEENT: No difficulty swallowing, eye injury, eye surgery, swollen glands or hoarseness Endo Endocrine: Yes diabetes mellitus; No thyroid disease, thyroid cancer, Hair loss, heat intolerance or cold intolerance Skin Skin: No rash or changing moles Musc Musculoskeletal: Yes arthritis; No back problems, rheumatoid arthritis, gout or joint pain Cardio Cardiovascular: No murmur, pacemaker, heart disease, atrial fibrillation, high blood pressure, heart attack, heart stent, palpitations, shortness of breath with exertion or chest pain Psych Psychiatric: No depression, anxiety or hearing voices Resp Respiratory: Yes shortness of breath, No sleep apnea, Yes cough, Yes COPD, No asthma, No emphysema and No wheezing Gastro Gastrointestinal: Yes abdominal pain, Yes nausea or vomiting, Yes diarrhea, No constipation, No blood in stool, Yes acid reflux, Yes hemorrhoids, Yes ulcers, No gallbladder problem and No black,tarry stools Dev Hematologic: No blood thinners, No blood disorders, No bleeding, Yes anemia and No blood clots Neuro Neurologic: No system reviewed and no additional complaints, except as documented, No as per HPI, No abnormal gait, No abnormal hearing, No abnormal movements, No abnormal speech, No behavioral changes, No burning sensations, No confusion, No convulsions, No disequilibrium, No dizziness, No localized weakness, No frequent falls, No headache(s), No lack of coordination, No loss of vision, No memory loss, No numbness, No other visual disturbances, No radicular pain, No restless legs, No sensory deficit, No syncope, No tingling, No tremor(s), No weakness and No other Exam Const General: cooperative, healthy appearing, comfortable and no acute distress [facility] Head: normocephalic and atraumatic Neck Neck: supple Chest Other: Palpation bilateral upper chest normal Resp Effort & Inspection: normal respiratory effort Cardio Rate: regular rate GI Inspection: non-distended Skin General: no rashes or lesions noted Neuro General: CN's II-XI intact bilaterally Extrem General: normal to inspection Psych Mental Status: mental status grossly normal Attitude: cooperative Assessment and Plan Assessment and Plan (1) Encounter for insertion of venous access port: Status: Acute (2) 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 P16 positive. CT done on 10/07/2024 report reviewed, no evidence of metastatic disease. pT2 cN0 M0-Stage IIA. Discussed therapy with chemotherapy and Radiation. Pt want to do IV chemotherapy with Radiation. Suggested Mitomycin and 5FU D1-4 and 29-32 during Radiation. Discussed risks, benefits and side effects. Plan I have discussed above with the patient- Port-a-Cath placement. Right possible left IJ Patient has been counseled as to the risks/benefits of the procedure. I have explained the risks of the surgery, including but not limited to: infection, bleeding, injury to any blood vessels/nerves, injury to lungs (such as pneumothorax or hemothorax and need for chest tube), not having any access, nonfunctioning of port due to thrombosis, infection of port, etc. the patient understands and agrees to proceed. I have answered all the patient's questions to the patient’s satisfaction and the patient has no further questions. Viki Maxwell M.D. Pager: [phone] [facility] [address] [place] [address], [address] [place] [address] Office: [phone] Coding Level of Care Code Off vis,new,level 3 Diagnoses Encounter for insertion of venous access port Z45.2 Squamous cell carcinoma of perianal region C44.520 11/20/24 1303 <Electronically signed by Viki Maxwell MD> Date Viki Maxwell MD
[2024-11-28] MEDS: Lidocaine 1% /Epi 1:100 (20ml) 20 ML Vial (13:04)
--- NOTE | 2024-11-28 13:33 | OP.PCM_ITS ---
Operative Report (Standard) Operative Information Date of Procedure: 11/28/24 Pre-Operative Diagnosis: Z45.2, squamous cell carcinoma of the anus Post-Operative Diagnosis: Same Surgery/Procedure Performed: 1. Placement of right IJ Port-A-Cath Use of fluoroscopy Use of ultrasound stone driller helper: No Type of Anesthesia: Local MAC RN Documented Start/Stop Times: Operation Date: 11/28/24 12:30 Case Time Into Pre-Op 11/28/24 10:23 Out of Pre-Op 11/28/24 12:49 Anesthesia Start 11/28/24 12:50 Into Room 11/28/24 12:50 Procedure Start 11/28/24 13:04 Procedure End 11/28/24 13:30 Anesthesia End 11/28/24 13:36 Out of Room 11/28/24 13:36 Into Recovery 11/28/24 13:40 Into Phase II Recovery 11/28/24 13:50 Out of Recovery 11/28/24 13:50 Procedure Start Time: 13:04 Procedure Stop Time: 13:30 Select all DRAINS/GRAFTS/IMPLANTS that apply: Implanted device Implanted device details: [employer] PowerPort isp M.R.I. 6Fr Lot [id number] ref [id number] Special Medications: Ancef 2 g IV x 1 Estimated Blood Loss: <10 cc Specimen collected: No Description of surgery: After informed consent was given, the patient was brought to the operating room and placed in the supine position. Appropriate time out protocol was followed. Patient was then given IV conscious sedation for anesthesia. The patient's right upper chest and neck were then prepped with a surgical skin preparation and sterile surgical drapes were placed. After proper landmarks were ascertained, the skin at the upper right chest area was then infiltrated with 1:1 mixture of 1% lidocaine with epinephrine and 0.25% marcaine. A needle trocar was then inserted into the right internal jugular vein with ultrasound guidance-multiple vessels were viewed with u/s and the right IJ was chosen-- and there was good aspiration of venous blood. A wire was then threaded into the needle trocar and this was visualized under fluoroscopy to ensure that the wire was in the superior vena cava. Once this was done, then the needle trocar was removed. A small skin maye was made with an 11 blade knife at the wire entrance site. The dilator with the introducer sheath attached was then placed over the wire into the right internal jugular vein via the Seldinger technique and this was visualized under fluoroscopy. The dilator and sheath were in proper position as visualized by fluoroscopy. A subcutaneous pocket was then created caudad to the catheter insertion site. A transverse skin incision was made after the skin and subcutaneous tissues were infiltrated with local anesthetic. Blunt dissection was then used to create a space large enough for placement of the subcutaneous port. The catheter was then tunneled into the subcutaneous pocket. The wire and dilator were then removed. The catheter was then threaded into the introducer sheath and was positioned with its tip at the junction of the superior vena cava and the right atrium as visualized under fluoroscopy. The excess catheter was transected. The catheter was then attached to the subcutaneous port using manufacturers guidelines. The catheter was flushed with a heparin saline mixture prior to placement. Hemostasis was carefully controlled with electrocautery. The port was sutured to the subcutaneous fascia using 2-0 Vicryl suture at two sites. The port was then placed in the subcutaneous pocket. The incision were reapproximated with interrupted subdermal 3-0 vicryl sutures. The skin was reapproximated with 3-0 nylon suture in a interrupted fashion. Steristrips were used for reinforcement of the skin closure at IJ insertion site and a sterile opsite dressings were applied. The patient tolerated the procedure well. Surgical Findings: See operative report Complications Complications: No
--- NOTE | 2024-11-28 13:35 | EX.PCM.DISCH ---
Discharge Instructions Procedure Port-A-Cath Diet Discharge Diet: Light diet - advance as tolerated Activity May shower in (days): 5 (Keep port site clean and dry x5 days. Neck incision okay to get wet after 1 day. Okay to lower shower and upper sponge bath. OR okay to taper off port site with a Ziploc bag to shower) Lifting Restrictions: No lifting > 15 pounds for 3 days with the arm on the side of the port Dressing / Incision Call your doctor if your incision/area has: Continuous Slow Oozing, Sudden Increased Bleeding, Increased Pain/ Swelling, Increased Redness, Foul Smelling Discharge and Swelling at the incision site Call your doctor if you observe: Fever of 101 or Higher Change Dressing in: 2 days (2-3 days- port site; ok to remove neck opsite in 1 day) Follow Up Care Please Follow Up With: Viki Maxwell MD When: In 10 days for permanent suture removal–call office for appointment Test Results: Test results from this visit will be discussed in further detail at your follow-up appointment, if applicable. Discharge Plan Admission Attending Provider: Viki Maxwell Primary Care Provider: Diana Solorzano Instructions Print Language: Mongolian Discharge Orders/Prescriptions Prescriptions: New oxycodone 5 mg capsule 5 mg PO Q6H PRN (Reason: pain) 3 Days Qty: 5 0RF Continued omeprazole 40 mg capsule,delayed release(DR/EC) 40 mg PO QDAY albuterol sulfate 90 mcg/actuation HFA aerosol inhaler 2 puff inhalation Q6H PRN (Reason: shortness of breath or wheezing) benzonatate 200 mg capsule 200 mg PO BID PRN (Reason: cough) atorvastatin 40 mg tablet 20 mg PO QDAY cyclobenzaprine 10 mg tablet 10 mg PO TID PRN (Reason: muscle spasm) sucralfate 1 gram tablet 1 g PO .qid ipratropium-albuterol 0.5 mg-3 mg(2.5 mg base)/3 mL solution for nebulization 3 ml inhalation .qid PRN (Reason: shortness of breath) famotidine 20 mg tablet 20 mg PO BID lidocaine 5 % ointment 1 applic topical QDAY PRN (Reason: pain) guaifenesin 600 mg tablet extended release 12hr 600 mg PO BID trazodone 50 mg tablet 50 mg PO QHS insulin glargine [Lantus Solostar U-100 Insulin] 100 unit/mL (3 mL) insulin pen 20 unit subcut QAM montelukast 10 mg tablet 10 mg PO QDAY hydroxyzine HCl 25 mg tablet 25 mg PO TID PRN (Reason: itching) ondansetron HCl 4 mg tablet 4 mg PO Q8H PRN (Reason: nausea and vomiting) lidocaine-prilocaine 2.5-2.5 % cream 1 applic topical ONCE PRN (Reason: port access) 30 Days Qty: 30 2RF Referrals / Follow Up: Diana Solorzano, [facility] [Primary Care Provider] - Disposition Disposition (needs filled in before D/C Order can be placed): Home, Self Care
--- NOTE | 2024-11-28 13:42 | PCM.POST.ANE ---
Anesthesia: Postop Eval I Current Vital Signs Temperature: 97.8 F Pulse Rate: 94 Blood Pressure: 109/63 Respiratory Rate: 20 Pulse Ox: 96 Oxygen Delivery Method: Room Air Assessment Airway patent: Yes Spontaneous unlabored respirations: Yes Mental status: Awake and Calm nausea: No Vomiting: No Anesthesia Complication: No Fluid Hydration Crystalloid volume administer (ml): 700 Total IV fluid infused: 700 Progress Note Anesthesia document: Postop Eval 1 completed: Yes
--- NOTE | 2024-11-28 13:43 | POSTOPAN2_ITS ---
Anesthesia Postop Eval I Sum Postop Eval Completion status Anesthesia document: Postop Eval 1 completed: Yes Anesthesia Postop Eval I Summary Anesthesia Postop Eval I Summary: Anesthesia Postop Eval I: Assessment Summary Airway patent Yes 11/28/24 13:43 [email or web address] Spontaneous unlabored Yes 11/28/24 13:43 [email or web address] [email or web address] respirations Mental status Awake,Calm 11/28/24 13:43 [email or web address] nausea No 11/28/24 13:43 [email or web address] [email or web address] Vomiting No 11/28/24 13:43 [email or web address] Anesthesia Postop Eval I: Fluid Summary Crystalloid volume administer 700 11/28/24 13:43 [email or web address] (ml) Colloids volume administered ( ml) Blood Product volume administered (ml) Total IV fluid infused 700 11/28/24 13:43 [email or web address] Anesthesia Postop Eval I: Summary Notes Anesthesia Complication No 11/28/24 13:43 [email or web address] Anesthesia Complication Comment: Post-operative progress note Anesthesia: Postop Eval II Evaluation Mental status: Awake and Calm Pain Level: 0 nausea: No Vomiting: No Progress Note Post-operative progress note: Patient is awake, calm, and comfortable. Pt. reports being asleep from the time of surgical site prep into the recovery room. Complications Anesthesia Complication: No
--- NOTE | 2024-11-28 13:43 | PCM.POSTANE2 ---
Anesthesia Postop Eval I Sum Postop Eval Completion status Anesthesia document: Postop Eval 1 completed: Yes Anesthesia Postop Eval I Summary Anesthesia Postop Eval I Summary: Anesthesia Postop Eval I: Assessment Summary Airway patent Yes 11/28/24 13:43 [email or web address] Spontaneous unlabored Yes 11/28/24 13:43 [email or web address] respirations Mental status Awake,Calm 11/28/24 13:43 [email or web address] nausea No 11/28/24 13:43 INSTRUCTOR [email or web address] Vomiting No 11/28/24 13:43 [email or web address] Anesthesia Postop Eval I: Fluid Summary Crystalloid volume administer 700 11/28/24 13:43 [email or web address] (ml) Colloids volume administered ( ml) Blood Product volume administered (ml) Total IV fluid infused 700 11/28/24 13:43 [email or web address] Anesthesia Postop Eval I: Summary Notes Anesthesia Complication No 11/28/24 13:43 [email or web address] Anesthesia Complication Comment: Post-operative progress note Anesthesia: Postop Eval II Evaluation Mental status: Awake and Calm Pain Level: 0 nausea: No Vomiting: No Progress Note Post-operative progress note: Patient is awake, calm, and comfortable. Pt. reports being asleep from the time of surgical site prep into the recovery room. Complications Anesthesia Complication: No
--- NOTE | 2024-11-28 13:45 | RAD_ITS ---
PROCEDURE: CHEST 1 VIEW (PORTABLE) 11/28/2024 REASON FOR EXAM: PORT TECHNIQUE: Frontal view of the chest. COMPARISON: September 24, 2024 FINDINGS: Hardware: Right-sided Port-A-Cath is in place. The tip is seen over the junction of the superior vena cava and right atrium. Heart: Normal size Lungs: Clear. No pneumothorax. Bones: The bones are unremarkable. RAD/Chest 1 View (Portable) IMPRESSION: No acute abnormality. No pneumothorax. Reading Location: [id number]
== END 2024-11-28 15:01 | disposition home or self-care (01) ==
LOC: SDC 10:20 → AC 10:21
PROVIDERS: PCP Nurse Practitioner Family; Referring Provider Surgery; Visit Provider Surgery
PROC: (CPT 36561; principal; 2024-11-28 12:15)
DX: Z45.2 Encounter for adjustment and management of vascular access device (principal); J44.9 Chronic obstructive pulmonary disease, unspecified; E11.9 Type 2 diabetes mellitus without complications; Z79.4 Long term (current) use of insulin; K21.9 Gastro-esophageal reflux disease without esophagitis; E78.5 Hyperlipidemia, unspecified; I25.10 Atherosclerotic heart disease of native coronary artery without angina pectoris; F17.210 Nicotine dependence, cigarettes, uncomplicated; C44.520 Squamous cell carcinoma of anal skin; Z79.899 Other long term (current) drug therapy
CPT/HCPCS: 36561; 00532; 71045; 77001; 82962

== ENCOUNTER → 2024-12-29 | Outpatient (CLI) | payer MEDICAID, SELFPAY | END | disposition home or self-care (01) | PROVIDERS: PCP Nurse Practitioner Family; Referring Provider Nurse Practitioner Family; Visit Provider Nurse Practitioner Family | DX: R00.2 Palpitations (principal); C44.520 Squamous cell carcinoma of anal skin | CPT/HCPCS: 36591; 80048; 83735; 84100; 85025; 93005; A4216 ==

== ENCOUNTER → 2025-01-06 | Outpatient (CLI) | payer MEDICAID, SELFPAY ==
--- NOTE | 2025-01-06 09:11 | EKG12_ITS ---
Test Reason : PRE-PROCEDURE Blood Pressure : */* mmHG Vent. Rate : 87 BPM Atrial Rate : 87 BPM P-R Int : 120 ms QRS Dur : 72 ms QT Int : 372 ms P-R-T Axes : 46 79 65 degrees QTcB Int : 447 ms Normal sinus rhythm normal. Confirmed by Woody Lizarraga ([id number]), market editor MAIRCRUZ MAX ([id number]) on 01/07/2025 6:35:00 AM Referred By: Antonio Brown Confirmed By: Woody Lizarraga
== END | disposition home or self-care (01) ==
PROVIDERS: PCP Nurse Practitioner Family; Referring Provider Internal Medicine Medical Oncology; Visit Provider Internal Medicine Medical Oncology
DX: R00.2 Palpitations (principal)
CPT/HCPCS: 36591; 77386; 80053; 83735; 85025; 93005; J9280; A4216; J2405; J9190

== ENCOUNTER 2025-05-05 13:01 | Outpatient (RCR) | payer MEDICAID, SELFPAY | END 2025-05-06 23:59 | LOC: NS 13:01 | PROVIDERS: PCP Nurse Practitioner Family; Referring Provider Internal Medicine Medical Oncology; Visit Provider Internal Medicine Medical Oncology | DX: Z71.3 Dietary counseling and surveillance (principal); C44.520 Squamous cell carcinoma of anal skin; K76.6 Portal hypertension; K31.89 Other diseases of stomach and duodenum | CPT/HCPCS: 97803 ==